=== PATIENT | male | born 1975 | race Two or more races ===

== ENCOUNTER 2024-07-30 14:12 | Emergency (ER) | payer MEDICAID, OTHER ==
[~2024-07-30] VITALS: Ht 180.3 cm; Wt 93.2 kg
[2024-07-30 14:53] LABS: Basophils # (auto) 0.1 10 ^3/uL (0-0.2); Eosinophils # (auto) 0.5 10 ^3/uL (0-0.8); Eosinophils % (auto) 6.6 % (0.0-7.0); Hematocrit 43.5 % (41.0-53.0); Lymphocytes # (auto) 2.3 10 ^3/uL (0.4-5.4); Lymphocytes % (auto) 32.7 % (10.0-50.0); Mean Corpuscular Hemoglobin 32.2 pg (28.0-32.0); Mean Corpuscular Hgb Conc. 34.5 g/dL (32.0-36.0); Mean Corpuscular Volume 93.2 fL (80.0-100.0); Monocytes # (auto) 0.7 10 ^3/uL (0-1.3); Monocytes % (auto) 10.5 % (0.0-12.0); Neutrophils # (auto) 3.5 10 ^3/uL (1.6-8.6); Neutrophils % (auto) 49.2 % (37.0-80.0); Nucleated Red Blood Cells % 0.1 %; Platelet Count (auto) 231 10^3/uL (140-450); Red Blood Cells 4.67 10^6/uL (4.5-5.90); Red Cell Distribution Width 13.8 % (11.8-14.3); White Blood Cell 7.1 10^3/uL (4.4-10.8)
[2024-07-30 15:03] LABS: Alanine Aminotransferase 31 U/L (7-40); Alkaline Phosphatase 88 U/L (46-116); Calcium 9.7 mg/dL (8.7-10.4); Carbon Dioxide 25 mmol/L (20-31); Chloride 107 mmol/L (98-107); Glucose 103 mg/dL (74-106); Magnesium 2.1 mg/dL (1.6-2.6); Potassium 4.4 mmol/L (3.5-5.1)
[2024-07-30 15:04] LABS: Albumin 4.7 g/dL (3.2-4.8); Anion Gap 6 (5-15); Aspartate Aminotransferase 18 U/L (13-40); BUN/Creatinine Ratio 12.8 (10.0-20.0); Bilirubin, Total 0.4 mg/dL (0.2-1.0); Blood Urea Nitrogen 18 mg/dL (9-23); Sodium 138 mmol/L (136-145); Total Protein 7.4 g/dL (5.7-8.2)
[2024-07-30 15:10] LABS: INR 0.97 (0.9-1.15); Partial Thromboplastin Time 27.9 SEC (24.5-34.5); Prothrombin Time 10.3 sec (9.3-11.8)
[2024-07-30 15:13] LABS: Urine Bacteria None Seen /hpf (None Seen)
[2024-07-30 15:21] LABS: Urine Blood TRACE /uL (Negative); Urine Clarity Clear (Clear); Urine Color Light-Yellow (Yellow); Urine Protein, UAD 1+ (Negative); Urine Specific Gravity 1.016 (1.001-1.035); Urine Urobilinogen Normal (Negative); Urine WBC <1 /hpf (0 - 3)
[2024-07-30] MEDS ORDERED: OMEP20TA PO (17:37)
[2024-07-30 18:05] VITALS: BP 145/102; PULSE 63; RESP 20; TEMP 98; O2SAT 98
== END 2024-07-30 18:07 | disposition home or self-care (01) ==
LOC: ER 14:12
DX: R07.89 Other chest pain (principal); I10 Essential (primary) hypertension
CPT/HCPCS: 36415; 71046; 80053; 81001; 83735; 84484; 85025; 85610; 85730; 93005

== ENCOUNTER 2024-10-02 20:33 | Emergency (ER) | payer MEDICAID ==
[~2024-10-02] VITALS: Ht 180.3 cm; Wt 95.0 kg
[~2024-10-02 20:33] MED LIST: OMEP20TA PO
[2024-10-02 20:49] VITALS: BP 158/101; RESP 16; O2SAT 99
[2024-10-02 20:57] VITALS: PULSE 66
--- NOTE | 2024-10-02 20:57 | ED.PDOC ---
History of Present Illness HPI Comments 49-year-old male presents with a chief complaint of chest pain x 40 minutes. Patient states that his pain is localized to his left chest, radiating to his left shoulder, describes as sharp, and rates his current pain 0/10. Patient mentions that as soon as the chest pain began he took 1 NTG at home and that r elieved his pain. Patient reports that the pain began while he was at rest. Patient takes Carvedilol, Hydralazine, and Clonidine. Patient was a little hypertensive at 158/101 in triage. Chief Complaint: Chest Pain Time Seen by MD: 20:42 Primary Care Provider: YONG Linder Notes: Medications, Allergies Allergies: Coded Allergies: NO KNOWN ALLERGIES (Unverified , 07/30/24) Home Meds Active Scripts Omeprazole (Gnp Omeprazole) 20 Mg Tab, 1 TAB PO BID for 10 Days, #20 TAB 1 Refill Prov:ARAM DELUCA MD 07/30/24 Information Source: Patient Mode of Arrival: Ambulatory Severity: Moderate Timing: Minutes Duration: Since onset Prehospital treatment: NTG Past Medical History PAST MEDICAL HISTORY: Denies Surgical History: Denies all surgeries Family History Family History: Reviewed,noncontributory to illness Social History Smoker: Non-Smoker Alcohol: Denies ETOH Use Drugs: Denies Drug Use Lives In: Home Constitutional: denies: chills, diaphoresis, fatigue, fever, malaise, sweats, weakness, others EENTM: denies: blurred vision, double vision, ear bleeding, ear discharge, ear drainage, ear pain, ear ringing, eye pain, eye redness, hearing loss, mouth pain, mouth swelling, nasal discharge, nose bleeding, nose congestion, nose pain, photophobia, tearing, throat pain, throat swelling, voice changes, others Respiratory: denies: cough, hemoptysis, orthopnea, SOB at rest, shortness of breath, SOB with excertion, stridor, wheezing, others Cardiovascular: reports: chest pain; denies: dizzy spells, diaphoresis, Dyspnea on exertion, edema, irregular heart beat, left arm pain, lightheadedness, palpitations, PND, syncope, others Gastrointestinal: denies: abdomen distended, abdominal pain, blood streaked bowels, constipated, diarrhea, dysphagia, difficulty swallowing, hematemesis, melena, nausea, poor appetite, poor fluid intake, rectal bleeding, rectal pain, vomiting, others Genitourinary: denies: burning, dysuria, flank pain, frequency, hematuria, incontinence, penile discharge, penile sore, pain, testicle pain, testicle swelling, urgency, others Neurological: denies: dizziness, fainting, headache, left sided numbness, left sided weakness, numbness, paresthesia, pre-existing deficit, right sided numbness, right sided weakness, seizure, speech problems, tingling, tremors, weakness, others Musculoskeletal: denies: back pain, gout, joint pain, joint swelling, muscle pain, muscle stiffness, neck pain, others Integumetry: denies: bruises, change in color, change in hair/nails, dryness, laceration, lesions, lumps, rash, wounds, others Allergic/Immunocompromised: denies: Difficulty Healing, Frequent Infections, Hives, Itching, others Hematologic/Lymphatic: denies: anemia, blood clots, easy bleeding, easy bruising, swollen glands, others Endocrine: denies: excessive hunger, excessive sweating, excessive thirst, excessive urination, flushing, intolerance to cold, intolerance to heat, unexplained weight gain, unexplained weight loss, others Psychiatric: denies: anxiety, bipolar disorder, depression, hopeless, panic disorder, schizophrenia, sleepless, suicidal, others All Other Systems: Reviewed and Negative Physical Exam General Appearance: No Apparent Distress, Normal HEENT: Normal ENT Inspection, Pharynx Normal, TMs Normal Neck: Full Range of Motion, Non-Tender, Normal, Normal Inspection Respiratory: Chest Non-Tender, Lungs Clear, No Accessory Muscle Use, No Respiratory Distress, Normal Breath Sounds Cardiovascular: No Edema, No JVD, No Murmur, No Gallop, Normal Peripheral Pulses, Regular Rate/Rhythm Breast Exam: Deferred Gastrointestinal: No Organomegaly, Non Tender, No Pulsatile Mass, Normal Bowel Sounds, Soft Genitalia: Deferred Pelvic: Deferred Rectal: Deferred Extremities: No calf tenderness, Normal capillary refill, Normal inspection, Normal range of motion, Non-tender, No pedal edema Musculoskeletal : Apperance: Normal Neurologic: Alert, certified court/medical interpreter II-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 Was a procedure done?: No EKG EKG : Pulse Rate (adult): 66 [place]: Normal Cardiac Rhythm: NSR Block: None Hypertrophy: None ST: Normal Differential Dx Considerations may include: Atypical chest pain angina ID acute coronary artery syndrome X-Ray, Labs, Meds, VS Vital Signs Date Time Temp Pulse Resp B/P (MAP) Pulse Ox O2 Delivery O2 Flow Rate FiO2 10/02/24 20:57 66 10/02/24 20:49 98.0 68 16 158/101 (120) 99 10/02/24 20:42 62 10/02/24 20:39 66 Lab Test 10/02/24 21:45 10/02/24 20:40 Range/Units Troponin I High Sensitivity 4 4 </=54 ng/L White Blood Count 7.0 4.4-10.8 10^3/uL Red Blood Count 4.71 4.5-5.90 10^6/uL Hemoglobin 14.8 13.5-17.5 g/dL Hematocrit 43.7 41.0-53.0 % Mean Corpuscular Volume 92.8 80.0-100.0 fL Mean Corpuscular Hemoglobin 31.5 28.0-32.0 pg Mean Corpuscular Hemoglobin Concent 34.0 32.0-36.0 g/dL Red Cell Distribution Width 14.0 11.8-14.3 % Platelet Count 211 140-450 10^3/uL Mean Platelet Volume 9.3 6.9-10.8 fL Neutrophils (%) (Auto) 52.0 37.0-80.0 % Lymphocytes (%) (Auto) 30.9 10.0-50.0 % Monocytes (%) (Auto) 8.9 0.0-12.0 % Eosinophils (%) (Auto) 7.5 H 0.0-7.0 % Basophils (%) (Auto) 0.7 0.0-2.0 % Neutrophils # (Auto) 3.7 1.6-8.6 10 ^3/uL Lymphocytes # (Auto) 2.2 0.4-5.4 10 ^3/uL Monocytes # (Auto) 0.6 0-1.3 10 ^3/uL Eosinophils # (Auto) 0.5 0-0.8 10 ^3/uL Basophils # (Auto) 0 0-0.2 10 ^3/uL Nucleated Red Blood Cells 0.1 % Sodium Level 137 136-145 mmol/L Potassium Level 4.0 3.5-5.1 mmol/L Chloride Level 103 98-107 mmol/L Carbon Dioxide Level 26 20-31 mmol/L Anion Gap 8 5-15 Blood Urea Nitrogen 20 9-23 mg/dL Creatinine 1.45 H 0.700-1.30 mg/dL Glomerular Filtration Rate Calc 58 >90 mL/min BUN/Creatinine Ratio 13.8 10.0-20.0 Serum Glucose 152 H 74-106 mg/dL Calcium Level 10.0 8.7-10.4 mg/dL Total Bilirubin 0.4 0.2-1.0 mg/dL Aspartate Amino Transferase (AST) 34 13-40 U/L Alanine Aminotransferase (ALT) 40 7-40 U/L Alkaline Phosphatase 100 46-116 U/L Total Protein 7.1 5.7-8.2 g/dL Albumin 4.4 3.2-4.8 g/dL [place] [id number] Ph: [phone] DIAGNOSTIC IMAGING Diagnostic Imaging Report : [id number] Signed PATIENT: HECTOR GAVIN JRACCT: [id number] UNIT: [id number] : 1975 LOC: ER ROOM / BED: / AGE / SEX: 49 / M ADM STATUS: REG ER SERVICE 34 ORDERING PHYSICIAN: MARQUES WARD MD PROCEDURE(s): CXRP - CHEST PORTABLE REASON: CHEST PAIN ORDER NUMBER(s): [id number], ACCESSION NUMBER(s): [id number] CHEST RADIOGRAPH Indication: CHEST PAIN Technique: Single frontal view of the chest was obtained Comparison: None FINDINGS: Lines and Tubes: None Lungs: Clear Pleura: No effusion. No pneumothorax. Cardiomediastinal contours: Unremarkable Bones: Unremarkable IMPRESSION: 1. Clear lungs. ATED BY: ISAEL CASTILLO DO DICTATED DATE/TIME: 10/02/242099 SIGNED BY: ISAEL CASTILLO DO SIGNED DATE/TIME: 10/02/242099 CC: Chest x-ray reviewed by myself and interpreted as men normal without any pulmonary cardio disease First troponin is four. Second troponin is four. EKG shows no signs of ischemia. CMP is normal. CBC is normal. The patient should be admitted to the hospitalist secondary to high cardiac risk factors. Time of 1ST Reevaluation: 21:12 Reevaluation 1ST: Unchanged Patient Education/Counseling: Diagnosis, Treatment, Prognosis Family Education/Counseling: No Family Present Departure 1 Departure Time of Disposition: 03:54 Impression: Primary Impression: Uncontrolled hypertension Additional Impression: Acute coronary syndrome Disposition: ADMITTED INPATIENT [facility]mit to: [facility] Condition: Guarded Critical Care Note Critical Care Time?: Yes (35 min-critical care time only) Stability Stability form required: No Heart Score Heart Score: Heart Score Response (Comments) Value History Highly Suspicious 2 EKG Normal 0 Age 45-64 1 Risk Factors >3 or Hx ASHD 2 Troponin Normal limit 0 Total 5 I personally scribed for MARQUES WARD MD ([email or web address]) on 10/02/24 at 20:57. Electronically submitted by Laith Allan [email or web address]). MARQUES WARD MD Oct 02, 2024 20:57
[2024-10-02 20:58] LABS: Basophils # (auto) 0 10 ^3/uL (0-0.2); Basophils % (auto) 0.7 % (0.0-2.0); Eosinophils # (auto) 0.5 10 ^3/uL (0-0.8); Eosinophils % (auto) 7.5 % (0.0-7.0); Hematocrit 43.7 % (41.0-53.0); Hemoglobin 14.8 g/dL (13.5-17.5); Lymphocytes # (auto) 2.2 10 ^3/uL (0.4-5.4); Lymphocytes % (auto) 30.9 % (10.0-50.0); Mean Corpuscular Hemoglobin 31.5 pg (28.0-32.0); Mean Corpuscular Volume 92.8 fL (80.0-100.0); Monocytes # (auto) 0.6 10 ^3/uL (0-1.3); Monocytes % (auto) 8.9 % (0.0-12.0); Neutrophils # (auto) 3.7 10 ^3/uL (1.6-8.6); Nucleated Red Blood Cells % 0.1 %; Platelet Count (auto) 211 10^3/uL (140-450); Red Blood Cells 4.71 10^6/uL (4.5-5.90)
--- NOTE | 2024-10-02 21:02 | DVH ---
CHEST RADIOGRAPH Indication: CHEST PAIN Technique: Single frontal view of the chest was obtained Comparison: None FINDINGS: Lines and Tubes: None Lungs: Clear Pleura: No effusion. No pneumothorax. Cardiomediastinal contours: Unremarkable Bones: Unremarkable IMPRESSION: 1. Clear lungs.
[2024-10-02 21:20] LABS: Albumin 4.4 g/dL (3.2-4.8); Alkaline Phosphatase 100 U/L (46-116); Anion Gap 8 (5-15); Aspartate Aminotransferase 34 U/L (13-40); BUN/Creatinine Ratio 13.8 (10.0-20.0); Blood Urea Nitrogen 20 mg/dL (9-23); Carbon Dioxide 26 mmol/L (20-31); Chloride 103 mmol/L (98-107); Sodium 137 mmol/L (136-145)
[2024-10-02 21:21] LABS: Bilirubin, Total 0.4 mg/dL (0.2-1.0); Total Protein 7.1 g/dL (5.7-8.2)
[2024-10-02 21:25] LABS: Alanine Aminotransferase 40 U/L (7-40); Glucose 152 mg/dL (74-106)
--- NOTE | 2024-10-03 02:06 | ECG ---
[facility] Test Date: 2024-10-02 Test Time: 21:42:16 Pat Name: HECTOR GAVIN Department: ER Room: Gender: Unix Administrator: : 1975 Requested By: MARQUES WARD Order Number: [id number] Reading MD: Reginald Tejada Measurements Intervals [place] Rate: 62 P: 47 [place]: 182 QRS: 17 QRSD: 109 T: 42 QT: 414 QTc: 421 Interpretive Statements Sinus rhythm Electronically Signed On 10-05-2024 10:24:45 PST by Reginald Tejada Please click the below link to view image of tracing.
--- NOTE | 2024-10-04 07:51 | ECG ---
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
== END 2024-10-03 00:44 | disposition left against medical advice (07) ==
LOC: ER 20:33
DX: I10 Essential (primary) hypertension (principal); I24.9 Acute ischemic heart disease, unspecified
CPT/HCPCS: 36415; 71045; 80053; 84484; 85025; 93005

== ENCOUNTER 2024-10-08 20:59 | Emergency (ER) | payer MEDICAID ==
[~2024-10-08] VITALS: Ht 180.3 cm; Wt 96.4 kg
[2024-10-08 21:22] LABS: Basophils # (auto) 0.1 10 ^3/uL (0-0.2); Eosinophils # (auto) 0.6 10 ^3/uL (0-0.8); Eosinophils % (auto) 7.8 % (0.0-7.0); Hematocrit 45.6 % (41.0-53.0); Hemoglobin 15.6 g/dL (13.5-17.5); Lymphocytes # (auto) 2.5 10 ^3/uL (0.4-5.4); Lymphocytes % (auto) 31.2 % (10.0-50.0); Mean Corpuscular Hemoglobin 31.5 pg (28.0-32.0); Mean Corpuscular Hgb Conc. 34.2 g/dL (32.0-36.0); Mean Corpuscular Volume 92.1 fL (80.0-100.0); Monocytes # (auto) 0.8 10 ^3/uL (0-1.3); Monocytes % (auto) 10.4 % (0.0-12.0); Neutrophils # (auto) 3.9 10 ^3/uL (1.6-8.6); Neutrophils % (auto) 49.6 % (37.0-80.0); Platelet Count (auto) 248 10^3/uL (140-450); Red Blood Cells 4.94 10^6/uL (4.5-5.90); Red Cell Distribution Width 13.8 % (11.8-14.3); White Blood Cell 7.9 10^3/uL (4.4-10.8)
[2024-10-08 21:34] LABS: Chloride 105 mmol/L (98-107); Potassium 3.6 mmol/L (3.5-5.1); Sodium 140 mmol/L (136-145)
[2024-10-08 21:35] LABS: Anion Gap 8 (5-15); Carbon Dioxide 27 mmol/L (20-31)
[2024-10-08 21:40] LABS: BUN/Creatinine Ratio 12.4 (10.0-20.0); Blood Urea Nitrogen 19 mg/dL (9-23); Glucose 83 mg/dL (74-106)
--- NOTE | 2024-10-08 21:52 | DVH ---
EXAMINATION: AP portable chest radiograph CLINICAL HISTORY: chest pain COMPARISON: XY CHEST PORTABLE on DOS: 10/02/24 TECHNIQUE: Upright chest x-ray FINDINGS: Negative AP chest. No dominant consolidations. The costophrenic angles are clear. No sizable pleural effusions or pneumo thorax identified. The cardiomediastinal silhouette appears within normal limits given technique. IMPRESSION: 1. Negative AP chest.
--- NOTE | 2024-10-09 00:49 | ED.PDOC ---
History of Present Illness HPI Comments 49-year-old male with a history of ckd presents with now resolved 6/10 left sided chest pain that did not radiate and was non exertional in nature. Patient reports he took his regular medications including a nitro and his pain resolved. He denies fevers, chills, nausea, vomiting, diarrhea, dysuria, or polyuria. Chief Complaint: Chest Pain Time Seen by MD: 21:01 Primary Care Provider: YONG Allergies: Coded Allergies: NO KNOWN ALLERGIES (Unverified , 07/30/24) Home Meds Active Scripts Omeprazole (Gnp Omeprazole) 20 Mg Tab, 1 TAB PO BID for 10 Days, #20 TAB 1 Refill Prov:ARAM DELUCA MD 07/30/24 Mode of Arrival: Ambulatory Past Medical History PAST MEDICAL HISTORY: Denies Surgical History: Denies all surgeries Family History Family History: Reviewed,noncontributory to illness Social History Smoker: Non-Smoker Alcohol: Denies ETOH Use Drugs: Denies Drug Use Lives In: Home Physical Exam General Appearance: No Apparent Distress, Normal HEENT: Normal ENT Inspection, Pharynx Normal, TMs Normal Neck: Full Range of Motion, Non-Tender, Normal, Normal Inspection Respiratory: Chest Non-Tender, Lungs Clear, No Accessory Muscle Use, No Respiratory Distress, Normal Breath Sounds Cardiovascular: No Edema, No JVD, No Murmur, No Gallop, Normal Peripheral Pu lses, Regular Rate/Rhythm Breast Exam: Deferred Gastrointestinal: No Organomegaly, Non Tender, No Pulsatile Mass, Normal Bowel Sounds, Soft Genitalia: Deferred Pelvic: Deferred Rectal: Deferred Extremities: No calf tenderness, Normal capillary refill, Normal inspection, Normal range of motion, Non-tender, No pedal edema Musculoskeletal : Apperance: Normal Neurologic: Alert, environmental health manager II-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 Was a procedure done?: No Differential Dx Considerations may include: acs, cva, msk strain, anxiety X-Ray, Labs, Meds, VS Vital Signs Date Time Temp Pulse Resp B/P (MAP) Pulse Ox O2 Delivery O2 Flow Rate FiO2 10/08/24 21:57 77 10/08/24 21:05 98.2 85 17 144/96 (112) 98 10/08/24 21:04 82 Lab Test 10/08/24 22:00 10/08/24 21:11 Range/Units Troponin I High Sensitivity 5 5 </=54 ng/L White Blood Count 7.9 4.4-10.8 10^3/uL Red Blood Count 4.94 4.5-5.90 10^6/uL Hemoglobin 15.6 13.5-17.5 g/dL Hematocrit 45.6 41.0-53.0 % Mean Corpuscular Volume 92.1 80.0-100.0 fL Mean Corpuscular Hemoglobin 31.5 28.0-32.0 pg Mean Corpuscular Hemoglobin Concent 34.2 32.0-36.0 g/dL Red Cell Distribution Width 13.8 11.8-14.3 % Platelet Count 248 140-450 10^3/uL Mean Platelet Volume 9.1 6.9-10.8 fL Neutrophils (%) (Auto) 49.6 37.0-80.0 % Lymphocytes (%) (Auto) 31.2 10.0-50.0 % Monocytes (%) (Auto) 10.4 0.0-12.0 % Eosinophils (%) (Auto) 7.8 H 0.0-7.0 % Basophils (%) (Auto) 1.0 0.0-2.0 % Neutrophils # (Auto) 3.9 1.6-8.6 10 ^3/uL Lymphocytes # (Auto) 2.5 0.4-5.4 10 ^3/uL Monocytes # (Auto) 0.8 0-1.3 10 ^3/uL Eosinophils # (Auto) 0.6 0-0.8 10 ^3/uL Basophils # (Auto) 0.1 0-0.2 10 ^3/uL Nucleated Red Blood Cells 0.0 % Sodium Level 140 136-145 mmol/L Potassium Level 3.6 3.5-5.1 mmol/L Chloride Level 105 98-107 mmol/L Carbon Dioxide Level 27 20-31 mmol/L Anion Gap 8 5-15 Blood Urea Nitrogen 19 9-23 mg/dL Creatinine 1.53 H 0.700-1.30 mg/dL Glomerular Filtration Rate Calc 55 >90 mL/min BUN/Creatinine Ratio 12.4 10.0-20.0 Serum Glucose 83 74-106 mg/dL Calcium Level 10.0 8.7-10.4 mg/dL Time of 1ST Reevaluation: 00:48 Reevaluation 1ST: Resolved Patient Education/Counseling: Diagnosis, Treatment Family Education/Counseling: No Family Present Departure 1 Departure Time of Disposition: 00:48 (Patient presented with chest pain that was concerning for possible STEMI, ACS, PE, Pneumonia, Muscle Strain, COPD, Dissection. Data: 1. I ordered and reviewed the result of at least 3 labs including a CBC, BMP, and Troponin. 2. I independently interpreted the following tests: EKG which shows normal sinus rhythm and Chest X-ray which shows a benign chest.Risk:This patient presented with a high risk of morbidity due to further diagnostic testing or treatment and may suffer from an acute cardiac or respiratory disorder. After review of all the data patient is unlikely to have a pe , dissection, and is low risk for acs. Patient is stable at this time.Workup so far is benign and patient will be discharged with outpatient followup. ) Impression: Primary Impression: Acute chest pain Disposition: HOME / SELF CARE / HOMELESS Condition: Stable Additional Instructions: You presented today with chest pain. Your workup today was benign including labs, troponin, EKG, chest x-ray. Your pain may be from musculoskeletal strain, acid reflux, anxiety, or many other factors. It is important to follow up with your regular doctor within 1 week. If your symptoms worsen or you have any other concerns please return to the emergency room. Discharged With: Self Critical Care Note Critical Care Time?: No Stability Stability form required: No Heart Score Heart Score: Heart Score Response (Comments) Value History Slightly Suspicious 0 EKG Normal 0 Age 45-64 1 Risk Factors 1 or 2 risk factors 1 Troponin Normal limit 0 Total 2 WARREN ROBINS MD Oct 09, 2024 00:49
[2024-10-09 02:22] VITALS: BP 134/98; PULSE 66; RESP 18; O2SAT 98
--- NOTE | 2024-10-09 06:25 | ECG ---
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
--- NOTE | 2024-10-09 10:52 | ECG ---
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
== END 2024-10-09 02:28 | disposition home or self-care (01) ==
LOC: ER 20:59
DX: R07.89 Other chest pain (principal); N18.9 Chronic kidney disease, unspecified; Z79.899 Other long term (current) drug therapy
CPT/HCPCS: 36415; 71045; 80048; 84484; 85025; 93005

== ENCOUNTER 2025-05-22 17:01 | Inpatient (IN) | payer MEDICAID ==
[~2025-05-22] VITALS: Ht 180.3 cm; Wt 88.6 kg
--- NOTE | 2025-05-22 17:14 | ED.PDOC ---
HPI Comments This is a 49 year-old male, with a PMHX of HTN and leaky heart valve, who presents to the ED via EMS with a chief complaint of chest pain with associated palpitations, nausea, and SOB as of minutes ago. 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 Patient states the customer denied him the ability to leave the situation, so symptoms quickly worsened. Patient reports feeling stressed, with 9/10 chest pain at the time. Upon evaluation, patient states chest pain is a 6/10, non-radiating, with the associated feeling of "pressure". Patient reports a history of this happening before. Patient has no other complaints at this time and otherwise denies further associated symptoms of cough, dizziness, blurred vision, or V/D. Chief Complaint: Chest Pain Time Seen by MD: 16:55 Primary Care Provider: YONG Linder Notes: Nurses Notes, Medications, Allergies Allergies: Coded Allergies: NO KNOWN ALLERGIES (Unverified , 07/30/24) Home Meds Active Scripts Omeprazole (Gnp Omeprazole) 20 Mg Tab, 1 TAB PO BID for 10 Days, #20 TAB 1 Refill Prov:ARAM DELUCA MD 07/30/24 Information Source: Patient Mode of Arrival: EMS Severity: Moderate Timing: Minutes Duration: Since onset Prehospital treatment: 12 Lead EKG Location: Substernal Radiation: No Radiation Quality: Pressure Associated Signs and Symptoms: SOB, Palpitations, Other (chest pain and nausea ) Past Medical History PAST MEDICAL HISTORY: CKF, High Lipids, HTN Surgical History (Other): R Arm Surgery Family History Family History: Family hx of DM, Family hx of heart tatianna, Family hx of HTN Social History Smoker: Non-Smoker Alcohol: Occasionally Drugs: Denies Drug Use Lives In: Home Constitutional: denies: chills, diaphoresis, fatigue, fever, malaise, sweats, weakness, others EENTM: denies: blurred vision, double vision, ear bleeding, ear discharge, ear drainage, ear pain, ear ringing, eye pain, eye redness, hearing loss, mouth pain, mouth swelling, nasal discharge, nose bleeding, nose congestion, nose pain, photophobia, tearing, throat pain, throat swelling, voice changes, others Respiratory: reports: SOB at rest, shortness of breath, SOB with excertion; denies: cough, hemoptysis, orthopnea, stridor, wheezing, others Cardiovascular: reports: chest pain, palpitations; denies: dizzy spells, diaphoresis, Dyspnea on exertion, edema, irregular heart beat, left arm pain, li ghtheadedness, PND, syncope, others Gastrointestinal: reports: nausea; denies: abdomen distended, abdominal pain, blood streaked bowels, constipated, diarrhea, dysphagia, difficulty swallowing, hematemesis, melena, poor appetite, poor fluid intake, rectal bleeding, rectal pain, vomiting, others Genitourinary: denies: burning, dysuria, flank pain, frequency, hematuria, incontinence, penile discharge, penile sore, pain, testicle pain, testicle s welling, urgency, others Neurological: denies: dizziness, fainting, headache, left sided numbness, left sided weakness, numbness, paresthesia, pre-existing deficit, right sided numbness, right sided weakness, seizure, speech problems, tingling, tremors, weakness, others Musculoskeletal: denies: back pain, gout, joint pain, joint swelling, muscle pain, muscle stiffness, neck pain, others Integumetry: denies: bruises, change in color, change in hair/nails, dryness, laceration, lesions, lumps, rash, wounds, others Allergic/Immunocompromised: denies: Difficulty Healing, Frequent Infections, Hives, Itching, others Hematologic/Lymphatic: denies: anemia, blood clots, easy bleeding, easy bruising, swollen glands, others Endocrine: denies: excessive hunger, excessive sweating, excessive thirst, excessive urination, flushing, intolerance to cold, intolerance to heat, unexplained weight gain, unexplained weight loss, others Psychiatric: denies: anxiety, bipolar disorder, depression, hopeless, panic disorder, schizophrenia, sleepless, suicidal, others All Other Systems: Reviewed and Negative Physical Exam General Appearance: Moderate Distress HEENT: Normal ENT Inspection, Pharynx Normal, TMs Normal Neck: Full Range of Motion, Non-Tender, Normal, Normal Inspection Respiratory: Chest Non-Tender, Lungs Clear, No Accessory Muscle Use, No Respiratory Distress, Normal Breath Sounds Cardiovascular: No Edema, No JVD, No Murmur, No Gallop, Normal Peripheral Pulses, Regular Rate/Rhythm Breast Exam: Deferred Gastrointestinal: No Organomegaly, Non Tender, No Pulsatile Mass, Normal Bowel Sounds, Soft Genitalia: Deferred Pelvic: Deferred Rectal: Deferred Extremities: No calf tenderness, Normal capillary refill, Normal inspection, Normal range of motion, Non-tender, No pedal edema Musculoskeletal : Apperance: Normal Neurologic: Alert, 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 Was a procedure done?: No CP Differential Dx Differential Diagnosis: Angina, Anxiety / Panic Attack Differential Diagnosis: HTN Essential X-Ray, Labs, Meds, VS Vital Signs Date Time Temp Pulse Resp B/P (MAP) Pulse Ox O2 Delivery O2 Flow Rate FiO2 05/22/25 18:09 72 18 124/83 (97) 97 05/22/25 18:09 72 18 97 Room Air 05/22/25 17:14 78 05/22/25 17:05 98.1 78 18 110/68 99 98.1 05/22/25 17:01 78 Lab Test 05/22/25 18:31 05/22/25 17:15 Range/Units Troponin I High Sensitivity Pending 10 </=54 ng/L White Blood Count 6.4 4.4-10.8 10^3/uL Red Blood Count 4.86 4.5-5.90 10^6/uL Hemoglobin 15.2 13.5-17.5 g/dL Hematocrit 44.2 41.0-53.0 % Mean Corpuscular Volume 91.0 80.0-100.0 fL Mean Corpuscular Hemoglobin 31.2 28.0-32.0 pg Mean Corpuscular Hemoglobin Concent 34.3 32.0-36.0 g/dL Red Cell Distribution Width 13.5 11.8-14.3 % Platelet Count 272 140-450 10^3/uL Mean Platelet Volume 9.2 6.9-10.8 fL Neutrophils (%) (Auto) 50.6 37.0-80.0 % Lymphocytes (%) (Auto) 30.5 10.0-50.0 % Monocytes (%) (Auto) 13.8 H 0.0-12.0 % Eosinophils (%) (Auto) 4.3 0.0-7.0 % Basophils (%) (Auto) 0.8 0.0-2.0 % Neutrophils # (Auto) 3.3 1.6-8.6 10 ^3/uL Lymphocytes # (Auto) 2.0 0.4-5.4 10 ^3/uL Monocytes # (Auto) 0.9 0-1.3 10 ^3/uL Eosinophils # (Auto) 0.3 0-0.8 10 ^3/uL Basophils # (Auto) 0.1 0-0.2 10 ^3/uL Nucleated Red Blood Cells 0.2 % Sodium Level 135 L 136-145 mmol/L Potassium Level 4.6 3.5-5.1 mmol/L Chloride Level 101 98-107 mmol/L Carbon Dioxide Level 23 20-31 mmol/L Anion Gap 11 5-15 Blood Urea Nitrogen 30 H 9-23 mg/dL Creatinine 2.58 H 0.700-1.30 mg/dL Glomerular Filtration Rate Calc 29 >90 mL/min BUN/Creatinine Ratio 11.6 10.0-20.0 Serum Glucose 82 74-106 mg/dL Calcium Level 9.7 8.7-10.4 mg/dL No acute cardiopulmonary disease. IV Hep-Lock was established The patient was given aspirin The patient's CBC and chemistry panel shows a BUN of 30 and a creatinine of 2.58 The troponin level is negative at this time The patient is still having persistent chest pain The patient is being admitted at this time Images Reviewed?: Images reviewed and evaluated by me Time of 1ST Reevaluation: 17:35 Reevaluation 1ST: Unchanged Patient Education/Counseling: Diagnosis, Treatment, Prognosis Family Education/Counseling: No Family Present SEPSIS Sepsis Screen Physician Orders Chest Portable (05/22/25 17:08) Heplock Iv (05/22/25 17:08) Malariologist (05/22/25 17:08) Blood Pressure (05/22/25 17:08) Pulse Oximetry (05/22/25 17:08) Urinalysis (05/22/25 17:08) Electrocardigram (05/22/25 17:08) Troponin-I Hs (05/22/25 18:08) Troponin-I Hs (05/22/25 20:08) Vital Signs Date Time Temp Pulse Resp B/P (MAP) Pulse Ox O2 Delivery O2 Flow Rate FiO2 05/22/25 18:09 72 18 124/83 (97) 97 05/22/25 18:09 72 18 97 Room Air 05/22/25 17:14 78 05/22/25 17:05 98.1 78 18 110/68 99 98.1 05/22/25 17:01 78 Laboratory Tests Test 05/22/25 17:15 White Blood Count 6.4 10^3/uL (4.4-10.8) Departure 1 Departure Time of Disposition: 19:03 Impression: Primary Impression: Acute coronary syndrome Disposition: 01 HOME / SELF CARE / HOMELESS Condition: Stable Discharged With: Self Critical Care Note Critical Care Time?: No Stability Stability form required: No Heart Score Heart Score: Heart Score Response (Comments) Value History Slightly Suspicious 0 EKG Normal 0 Age 45-64 1 Risk Factors 1 or 2 risk factors 1 Troponin Normal limit 0 Total 2 I personally scribed for DYLON MCKEON MD ([email or web address]) on 05/22/25 at 17:14. Electronically submitted by Dorina Reyes ([employer]). I personally scribed for DYLON MCKEON MD ([email or web address]) on 05/22/25 at 17:57. Electronically submitted by Dorina Reyes ([employer]). I personally scribed for DYLON MCKEON MD ([email or web address]) on 05/22/25 at 18:39. Electronically submitted by Dorina Reyes ([employer]). DYLON MCKEON MD May 22, 2025 17:14
[2025-05-22 17:29] LABS: Hematocrit 44.2 % (41.0-53.0); Hemoglobin 15.2 g/dL (13.5-17.5); Mean Corpuscular Hemoglobin 31.2 pg (28.0-32.0); Mean Corpuscular Volume 91.0 fL (80.0-100.0); Nucleated Red Blood Cells % 0.2 %
[2025-05-22 17:37] LABS: Chloride 101 mmol/L (98-107); Potassium 4.6 mmol/L (3.5-5.1)
[2025-05-22 17:38] LABS: Anion Gap 11 (5-15); Calcium 9.7 mg/dL (8.7-10.4); Carbon Dioxide 23 mmol/L (20-31)
[2025-05-22 17:43] LABS: BUN/Creatinine Ratio 11.6 (10.0-20.0); Glucose 82 mg/dL (74-106)
[2025-05-22 18:20] LABS: Blood Urea Nitrogen 30 mg/dL (9-23); Sodium 135 mmol/L (136-145)
--- NOTE | 2025-05-22 18:35 | DVH ---
CHEST RADIOGRAPH Indication: cp Technique: Single frontal view of the chest was obtained Comparison: XY CHEST PORTABLE on DOS: 10/08/24, XY CHEST PORTABLE on DOS: 10/02/24, XY CHEST TWO VIEW S ROUTINE on DOS: 07/30/24 FINDINGS: Lines and Tubes: None Lungs: No focal consolidation. Pleura: No effusion. No pneumothorax. Cardiomediastinal contours: Unremarkable Bones: No acute osseous abnormality. IMPRESSION: No acute cardiopulmonary disease.
[2025-05-22] MEDS ORDERED: ACETAMINOPHEN 325 MG TAB PO PRN (19:30)
[2025-05-22] MEDS ORDERED: ONDANSETRON HCL 4 MG/2 ML VIAL IV PRN (19:30)
[2025-05-22] MEDS ORDERED: NITROGLYCERIN 0.4 MG SL TAB SL PRN (19:30)
[2025-05-22] MEDS ORDERED: MORPHINE SULFATE INJ 2 MG/ml SYRG IV PRN (19:30)
--- NOTE | 2025-05-22 21:39 | DVHHP2 ---
History of Present Illness Reason for Visit: Chest pain History of Present Illness 49-year-old male presents for evaluation of chest pain. Patient reports developing left-sided pressure-like chest pain after having an argument with a co-worker. Currently he denies any complaints. 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 Past Medical History Hypertension, dyslipidemia, chronic kidney disease Past Surgical History Right arm surgery Family History Noncontributory Smoke: No ALCOHOL: none Drugs: None Lives: with Family Review of Systems Review of Systems Review of systems are currently negative otherwise addressed in HPI. Allergies: Coded Allergies: NO KNOWN ALLERGIES (Unverified , 07/30/24) Medications Current Medications Medications Dose Ordered Sig/Onofre Route Start Time Stop Time Status Last Admin Dose Admin Aspirin 81 mg DAILY PO 05/23/25 10:00 Sodium Bicarbonate 650 mg BID PO 05/22/25 22:00 Labetalol HCl 300 mg Q12HR PO 05/22/25 22:00 Atorvastatin Calcium 40 mg HS PO 05/22/25 22:00 Amlodipine Besylate 10 mg DAILY PO 05/23/25 10:00 Ondansetron HCl 4 mg Q4HP PRN IV 05/22/25 19:30 Acetaminophen 650 mg Q6HP PRN PO 05/22/25 19:30 Nitroglycerin 0.4 mg Q5MINP PRN SL 05/22/25 19:30 Morphine Sulfate 2 mg Q30M PRN IV 05/22/25 19:30 Exam Vital Signs Vital Signs Date Time Temp Pulse Resp B/P (MAP) Pulse Ox O2 Delivery O2 Flow Rate FiO2 05/22/25 18:09 72 18 124/83 (97) 97 05/22/25 18:09 Room Air 05/22/25 17:05 98.1 98.1 Exam Gen: 49-year-old male in no apparent distress. Skin: Warm, dry, normal color and texture, no rash. HEENT: Normocephalic atraumatic, mucous membranes moist and pink. Neck: Cervical and supraclavicular nodes normal without enlargement, trachea is midline, thyroid gland is normal without masses. Pulmonary: Clear to auscultation and percussion bilaterally. Cardiac: Regular rate and rhythm. No murmur Abdomen: Soft, nontender, nondistended, bowel sounds present all 4 quadrants, no guarding, no rigidity, no organomegaly. Extremities: No cyanosis, clubbing, no edema Neuro: Cranial nerves II through XII grossly intact, normal affect and speech, no focal motor deficits. Labs/Xrays ORDERING PHYSICIAN: DYLON MCKEON MD PROCEDURE(s): CXRP - CHEST PORTABLE REASON: cp ORDER NUMBER(s): [id number], ACCESSION NUMBER(s): [id number] CHEST RADIOGRAPH Indication: cp Technique: Single frontal view of the chest was obtained Comparison: XY CHEST PORTABLE on DOS: 10/08/24, XY CHEST PORTABLE on DOS: 10/02/24, XY CHEST TWO VIEWS ROUTINE on DOS: 07/30/24 FINDINGS: Lines and Tubes: None Lungs: No focal consolidation. Pleura: No effusion. No pneumothorax. Cardiomediastinal contours: Unremarkable Bones: No acute osseous abnormality. IMPRESSION: No acute cardiopulmonary disease. Labs Test 05/22/25 18:31 05/22/25 18:14 05/22/25 17:15 Range/Units Troponin I High Sensitivity 11 </=54 ng/L White Blood Count 6.4 4.4-10.8 10^3/uL Red Blood Count 4.86 4.5-5.90 10^6/uL Hemoglobin 15.2 13.5-17.5 g/dL Hematocrit 44.2 41.0-53.0 % Mean Corpuscular Volume 91.0 80.0-100.0 fL Mean Corpuscular Hemoglobin 31.2 28.0-32.0 pg Mean Corpuscular Hemoglobin Concent 34.3 32.0-36.0 g/dL Red Cell Distribution Width 13.5 11.8-14.3 % Platelet Count 272 140-450 10^3/uL Mean Platelet Volume 9.2 6.9-10.8 fL Neutrophils (%) (Auto) 50.6 37.0-80.0 % Lymphocytes (%) (Auto) 30.5 10.0-50.0 % Monocytes (%) (Auto) 13.8 H 0.0-12.0 % Eosinophils (%) (Auto) 4.3 0.0-7.0 % Basophils (%) (Auto) 0.8 0.0-2.0 % Neutrophils # (Auto) 3.3 1.6-8.6 10 ^3/uL Lymphocytes # (Auto) 2.0 0.4-5.4 10 ^3/uL Monocytes # (Auto) 0.9 0-1.3 10 ^3/uL Eosinophils # (Auto) 0.3 0-0.8 10 ^3/uL Basophils # (Auto) 0.1 0-0.2 10 ^3/uL Nucleated Red Blood Cells 0.2 % Sodium Level 135 L 136-145 mmol/L Potassium Level 4.6 3.5-5.1 mmol/L Chloride Level 101 98-107 mmol/L Carbon Dioxide Level 23 20-31 mmol/L Anion Gap 11 5-15 Blood Urea Nitrogen 30 H 9-23 mg/dL Creatinine 2.58 H 0.700-1.30 mg/dL Glomerular Filtration Rate Calc 29 >90 mL/min BUN/Creatinine Ratio 11.6 10.0-20.0 Serum Glucose 82 74-106 mg/dL Calcium Level 9.7 8.7-10.4 mg/dL SEPSIS Sepsis Screen Date sepsis recognized/suspect: May 22, 2025 Time Sepsis recognized/suspect: 1704 Recent Procedure: No On Antibiotic Therapy: No Respiratory Rate >20: No Heart Rate >90: No Temp<36 C (96.8 F) or >38.3 C: No SBP <90 or MAP <65 mmHG: No New Acute Mental Status Change: No Is the patient on CPAP, BIPAP,: No Physician Orders Chest Portable (05/22/25 17:08) Heplock Iv (05/22/25 17:08) Shopfitter (05/22/25 17:08) Blood Pressure (05/22/25 17:08) Pulse Oximetry (05/22/25 17:08) Urinalysis (05/22/25 17:08) Electrocardigram (05/22/25 17:08) Aspirin Tablet (05/23/25 10:00) Sodium Bicarb Tab (05/22/25 22:00) Labetalol Hcl Tablet (Normodyne Tablet) (05/22/25 22:00) Atorvastatin (Lipitor) (05/22/25 22:00) Amlodipine Tablet (Norvasc Tablet) (05/23/25 10:00) Basic Metabolic Panel (05/23/25 04:00) *Dr. Conchita Fierro -Da Diana (05/22/25 19:29) Admit (05/22/25 19:29) Renal Standard(2gna,3gk,Lopho) (05/23/25 Breakfast) Ondansetron Hcl (Zofran) (05/22/25 19:30) Echo 2d Mode Cardiac Dop (05/22/25 19:29) Condition: Fair (05/22/25 19:29) Acetaminophen Tablet (Tylenol Tablet) (05/22/25 19:30) Bedrest With Bathroom Privileg (05/22/25 19:29) Nitroglycerin Sublingual (Ntrostat Subli (05/22/25 19:30) Morphine Sulfate Injection (05/22/25 19:30) Stat Ekg For Chest Pain (05/22/25 19:29) Notify Md Of Changes From Base (05/22/25 19:29) Risk Assessment Analyst For 24 Hours (05/22/25 19:29) Emergency Dysrhythmia Protocol (05/22/25 19:29) Rhythm Strips Once Every Shift (05/22/25 19:29) Oxygen By Nasal Cannula (05/22/25 19:29) * Cardiology Consult (05/22/25 21:35) Vital Signs Date Time Temp Pulse Resp B/P (MAP) Pulse Ox O2 Delivery O2 Flow Rate FiO2 05/22/25 18:09 72 18 124/83 (97) 97 05/22/25 18:09 72 18 97 Room Air 05/22/25 17:14 78 05/22/25 17:05 98.1 78 18 110/68 99 98.1 05/22/25 17:01 78 Laboratory Tests Test 05/22/25 17:15 White Blood Count 6.4 10^3/uL (4.4-10.8) Assessment/Plan Assessment/Plan Assessment Chest pain rule out ACS Acute on chronic renal failure Hypertension Plan Admit the patient to telemetry to the hospitalist Cardiology consultation Nephrology consult Resume home medications Continue treatment per orders. Plan discussed with: Patient My Orders Orders - CAMRON BENAVIDEZ AGACNP Procedure Category Date Status Time Aspirin Tablet PHA 05/23/25 In Process 10:00 Sodium Bicarb Tab PHA 05/22/25 In Process 22:00 Labetalol Hcl Tablet PHA 05/22/25 In Process (Normodyne Tablet) 22:00 Atorvastatin (Lipitor) PHA 05/22/25 In Process 22:00 Amlodipine Tablet PHA 05/23/25 In Process (Norvasc Tablet) 10:00 Basic Metabolic Panel LAB 05/23/25 Verified 04:00 *Dr. Conchita Alfaro CONS 05/22/25 Transmitted Diana 19:29 Admit ADMIT 05/22/25 Transmitted 19:29 Renal DIET 05/23/25 Transmitted Standard(2gna,3gk,Lopho) Breakfast Ondansetron Hcl PHA 05/22/25 In Process (Zofran) 19:30 Echo 2d Mode Cardiac US 05/22/25 Logged DOP 19:29 Condition: Fair ILIANA 05/22/25 In Process 19:29 Acetaminophen Tablet PHA 05/22/25 In Process (Tylenol Tablet) 19:30 Bedrest With Bathroom ILIANA 05/22/25 In Process Privileg 19:29 Nitroglycerin [facility] 05/22/25 In Process Sublingual (Ntrostat 19:30 Morphine Sulfate PHA 05/22/25 In Process Injection 19:30 Stat Ekg For Chest [facility] 05/22/25 In Process Pain 19:29 Notify Md Of Changes [facility] 05/22/25 In Process From Base 19:29 Risk Assessment Analyst For [facility] 05/22/25 In Process 24 Hours 19:29 Emergency Dysrhythmia [facility] 05/22/25 In Process Protocol 19:29 Rhythm Strips Once [facility] 05/22/25 In Process Every Shift 19:29 Oxygen By Nasal RT 05/22/25 Transmitted Cannula 19:29 * Cardiology Consult CONS 05/22/25 Verified 21:35 Date of Service: May 22, 2025 Billing Provider: CAMRON BENAVIDEZ Common Visit Codes: [id number] INP/OBS CARE (HIGH) CAMRON BENAVIDEZ May 22, 2025 21:39
[2025-05-22 21:48] LABS: Urine Protein, UAD TRACE (Negative)
[2025-05-22] MEDS: ATORVASTATIN 20 MG TAB PO SCH (22:41)
[2025-05-22] MEDS: LABETALOL HCL 200 MG TAB PO SCH (22:42)
[2025-05-22] MEDS: SODIUM BICARBONATE 650 MG TAB PO SCH (22:42)
[2025-05-22 22:43] VITALS: PULSE 78; RESP 18; O2SAT 98
[2025-05-23 08:25] LABS: Chloride 103 mmol/L (98-107); Potassium 3.7 mmol/L (3.5-5.1); Sodium 136 mmol/L (136-145)
[2025-05-23 08:26] LABS: Anion Gap 11 (5-15); Calcium 9.3 mg/dL (8.7-10.4); Carbon Dioxide 22 mmol/L (20-31)
[2025-05-23 08:31] LABS: BUN/Creatinine Ratio 16.3 (10.0-20.0); Glucose 82 mg/dL (74-106)
[2025-05-23 08:33] LABS: Blood Urea Nitrogen 33 mg/dL (9-23)
--- NOTE | 2025-05-23 09:14 | DVHINCON2 ---
Date of service: May 23, 2025 History of Present Illness HPI Patient is a 49-year-old gentleman who presented to the hospital after an argument which resulted in some palpitation and chest discomfort. At the time of evaluation, patient denies any chest discomfort and palpitation. Cardiology is involved for cardiac aspects of care. Patient is known to our office from outside and before. Does have history of hypertension and CKD for which follows with cardiology (os) and also Nephrology. It is of note that the patient says that he had been fasting for the past 3 days. 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 Drugs: None Review of Systems Constitutional: No symptom reported Cardiovascular: Chest Pain, Palpitations All Other Systems 14 point review of system was performed. Relevant findings as per above and as per HPI. Otherwise negative. H&P Exam Vital Signs Vital Signs Date Time Temp Pulse Resp B/P (MAP) Pulse Ox O2 Delivery O2 Flow Rate FiO2 05/23/25 07:39 97.6 58 18 109/77 (88) 95 97.6 05/22/25 22:43 Room Air* 0 21 General Appeara: Well developed Head Exam: Normal inspection Neck Exam: Normal inspection Eye Exam: bilateral eye PERRL Nasal Exam: Normal inspection Mouth: Normal Inspection Pulmonary/Respiratory: Lungs clear Cardiovascular/Chest: Regular rate, Systolic murmur Abdominal Exam: Normal bowel sounds, Soft, No hepatospenomegaly Neuro/Mental St: Alert, Oriented Appearance: Appropriate appearance Eye contact/ Speech: Cooperative Labs/Xrays Labs Test 05/23/25 08:43 05/23/25 07:32 05/22/25 18:31 05/22/25 18:14 Range/Units Sodium Level 136 136-145 mmol/L Potassium Level 3.7 3.5-5.1 mmol/L Chloride Level 103 98-107 mmol/L Carbon Dioxide Level 22 20-31 mmol/L Anion Gap 11 5-15 Blood Urea Nitrogen 33 H 9-23 mg/dL Creatinine 2.03 H 0.700-1.30 mg/dL Glomerular Filtration Rate Calc 39 >90 mL/min BUN/Creatinine Ratio 16.3 10.0-20.0 Serum Glucose 82 74-106 mg/dL Calcium Level 9.3 8.7-10.4 mg/dL Magnesium Level 2.3 1.6-2.6 mg/dL Troponin I High Sensitivity 11 </=54 ng/L Urine Color Yellow Yellow Urine Clarity Clear Clear Urine pH 5.0 5.0-9.0 Urine Specific [place] 1.015 1.001-1.035 Urine Protein Trace H Negative Urine Ketones Trace Negative Urine Blood Negative Negative /uL Urine Nitrite Negative Negative Urine Bilirubin Negative Negative Urine Urobilinogen Normal Negative mg/dL Urine Leukocyte Esterase Negative Negative /uL Urine RBC <1 0 - 3 /hpf Urine Microscopic WBC 1 0-3 /HPF Urine Squamous Epithelial Cells None seen <5 /hpf Urine Bacteria None seen None Seen /hpf Urine Hyaline Casts Few 0 - 2 /lpf Urine Glucose Normal Normal mg/dL Test 05/22/25 17:15 Range/Units White Blood Count 6.4 4.4-10.8 10^3/uL Red Blood Count 4.86 4.5-5.90 10^6/uL Hemoglobin 15.2 13.5-17.5 g/dL Hematocrit 44.2 41.0-53.0 % Mean Corpuscular Volume 91.0 80.0-100.0 fL Mean Corpuscular Hemoglobin 31.2 28.0-32.0 pg Mean Corpuscular Hemoglobin Concent 34.3 32.0-36.0 g/dL Red Cell Distribution Width 13.5 11.8-14.3 % Platelet Count 272 140-450 10^3/uL Mean Platelet Volume 9.2 6.9-10.8 fL Neutrophils (%) (Auto) 50.6 37.0-80.0 % Lymphocytes (%) (Auto) 30.5 10.0-50.0 % Monocytes (%) (Auto) 13.8 H 0.0-12.0 % Eosinophils (%) (Auto) 4.3 0.0-7.0 % Basophils (%) (Auto) 0.8 0.0-2.0 % Neutrophils # (Auto) 3.3 1.6-8.6 10 ^3/uL Lymphocytes # (Auto) 2.0 0.4-5.4 10 ^3/uL Monocytes # (Auto) 0.9 0-1.3 10 ^3/uL Eosinophils # (Auto) 0.3 0-0.8 10 ^3/uL Basophils # (Auto) 0.1 0-0.2 10 ^3/uL Nucleated Red Blood Cells 0.2 % Assessment/Plan Plan Patient is a 49-year-old gentleman who presented to the hospital after an argument which resulted in some palpitation and chest discomfort. At the time of evaluation, patient denies any chest discomfort and palpitation. Cardiology is involved for cardiac aspects of care. Patient is known to our office from outside and before. Does have history of hypertension and CKD for which follows with cardiology (os) and also Nephrology. It is of note that the patient says that he had been fasting for the past 3 days. Not in acute distress. No JVD. Mucosa is pink and wet. No carotid bruit. No goiter. Lungs are clear to auscultation. Cardiac: Regular, no thrill/gallop. Systolic murmur 2/6 in the apex is heard. Abdomen is soft. There is no hepatomegaly. There is no peripheral edema. Dorsalis pedis is 2+ bilateral. 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 Echocardiogram of December 11, 2024 (performed in the office) revealed LVEF of 65-70%, borderline concentric left ventricular hypertrophy, mild mitral valve prolapse/MR/TR/PI and right ventricular systolic pressure of 31 mm Hg Creatinine: 2.58 - 2.03 GFR: 28 - 33 Potassium: 4.6 Troponin (high sensitive): 10-11 EKG reveals sinus rhythm with no specific ST-T changes Patient is a 49-year-old gentleman who presented with atypical chest discomfort which happened after some argument. EKG has been nonrevealing. Serial high sensitive troponin has been negative. Acute coronary syndrome is not con sidered. It is of note that the patient does have old history of CKD and his baseline GFR was around 60 in October 2024. Presently his GFR has decreased. He does mentioned that he had been fasting for few days before arrival. It is also of note that the patient does have hypertension for which he was on labetalol/amlodipine/clonidine as outpatient. Atypical chest pain Hypertension JONI on CKD Hyperlipidemia GERD Cardiac suggestion for management: Manage on telemetry Follow-up electrolytes and kidney function tests and correct abnormalities Follow-up vital signs and avoid hyper/hypotension Echocardiogram No indication for ischemic workup at this point Consider urinalysis Consider Nephrology evaluation for worsening kidney function Lifestyle and risk factor modification is advised Further evaluation and management depends on the above and clinical course Thank you for consultation A total of 75 minutes was spent reviewing the patient record, examining the patient, making a diagnostic and therapeutic plan, discussing this plan with medical personnel, following up on diagnostic studies and following the patient for clinical stability excluding any and all procedures. At least 50% of this time was spent in direct, [id number] contact. Thank you for allowing me to participate in this patient's care. Further recommendations will depend on patient's clinical course. Please do not hesitate to contact me if you have any questions or concerns. This medical document was created using electronic medical record system with [employer] computerized dictation system. Although this document has been carefully reviewed, there may still be some phonetic and typographical errors. These areas are purely typographical due to the imperfection of the software programs, and do not reflect any compromise in the patient's medical care Plan discussed with: Patient, Other (nurse) GABRIEL PRATT MD May 23, 2025 09:14
[2025-05-23 09:44] LABS: INR 0.97 (0.9-1.15); Prothrombin Time 10.3 sec (9.3-11.8)
[2025-05-23] MEDS ORDERED: HYDR-4924 PO (12:11)
[2025-05-23] MEDS ORDERED: TAMS-35 PO (12:11)
[2025-05-23 13:17] VITALS: RESP 16; O2SAT 97
[2025-05-23 13:37] VITALS: BP 122/70; PULSE 72; TEMP 36.9
[2025-05-23 14:07] LABS: Amphetamine Screen, Urine Neg (NEGATIVE)
[2025-05-23 14:08] LABS: Barbiturate Scree,Urine Neg (NEGATIVE); Benzodiazephine Screen, Urine Neg (NEGATIVE); Cannabinoid Screen, Urine Neg (NEGATIVE); Cocaine Screen, Urine Neg (NEGATIVE); Opiate Scree,Urine Neg (NEGATIVE); Phencyclidine Screen, Urine Neg (NEGATIVE)
--- NOTE | 2025-05-23 19:45 | DVHDSRES ---
Discharge Summary Date of Admission Resident Creating Document: JOAO LAWRENCE RESIDENT May 22, 2025 at 19:29 Date of Discharge: May 23, 2025 Admitting Diagnosis Noncardiac chest pain Labs/Diagnostic Data: Laboratory Results Test 05/23/25 08:43 05/23/25 07:32 05/22/25 18:31 05/22/25 18:14 Prothrombin Time 10.3 sec (9.3-11.8) Prothrombin Time INR 0.97 (0.9-1.15) Sodium Level 136 mmol/L (136-145) Potassium Level 3.7 mmol/L (3.5-5.1) Chloride Level 103 mmol/L (98-107) Carbon Dioxide Level 22 mmol/L (20-31) Anion Gap 11 (5-15) Blood Urea Nitrogen 33 mg/dL (9-23) Creatinine 2.03 mg/dL (0.700-1.30) Glomerular Filtration Rate Calc 39 mL/min (>90) BUN/Creatinine Ratio 16.3 (10.0-20.0) Serum Glucose 82 mg/dL (74-106) Calcium Level 9.3 mg/dL (8.7-10.4) Magnesium Level 2.3 mg/dL (1.6-2.6) Thyroid Stimulating Hormone (TSH) 0.95 uIU/mL (0.55-4.78) Troponin I High Sensitivity 11 ng/L (</=54) Urine Color Yellow (Yellow) Urine Clarity Clear (Clear) Urine pH 5.0 (5.0-9.0) Urine Specific [place] 1.015 (1.001-1.035) Urine Protein Trace (Negative) Urine Ketones Trace (Negative) Urine Blood Negative /uL (Negative) Urine Nitrite Negative (Negative) Urine Bilirubin Negative (Negative) Urine Urobilinogen Normal mg/dL (Negative) Urine Leukocyte Esterase Negative /uL (Negative) Urine RBC <1 /hpf (0 - 3) Urine Microscopic WBC 1 /HPF (0-3) Urine Squamous Epithelial Cells None seen /hpf (<5) Urine Bacteria None seen /hpf (None Seen) Urine Hyaline Casts Few /lpf (0 - 2) Urine Glucose Normal mg/dL (Normal) Urine Opiates Screen Neg (NEGATIVE) Urine Fentanyl Screen Neg (NEGATIVE) Urine Barbiturates Screen Neg (NEGATIVE) Urine Phencyclidine Screen Neg (NEGATIVE) Urine Amphetamines Screen Neg (NEGATIVE) Urine Benzodiazepines Screen Neg (NEGATIVE) Urine Cocaine Screen Neg (NEGATIVE) Urine Cannabinoids Screen Neg (NEGATIVE) Test 05/22/25 17:15 White Blood Count 6.4 10^3/uL (4.4-10.8) Red Blood Count 4.86 10^6/uL (4.5-5.90) Hemoglobin 15.2 g/dL (13.5-17.5) Hematocrit 44.2 % (41.0-53.0) Mean Corpuscular Volume 91.0 fL (80.0-100.0) Mean Corpuscular Hemoglobin 31.2 pg (28.0-32.0) Mean Corpuscular Hemoglobin Concent 34.3 g/dL (32.0-36.0) Red Cell Distribution Width 13.5 % (11.8-14.3) Platelet Count 272 10^3/uL (140-450) Mean Platelet Volume 9.2 fL (6.9-10.8) Neutrophils (%) (Auto) 50.6 % (37.0-80.0) Lymphocytes (%) (Auto) 30.5 % (10.0-50.0) Monocytes (%) (Auto) 13.8 % (0.0-12.0) Eosinophils (%) (Auto) 4.3 % (0.0-7.0) Basophils (%) (Auto) 0.8 % (0.0-2.0) Neutrophils # (Auto) 3.3 10 ^3/uL (1.6-8.6) Lymphocytes # (Auto) 2.0 10 ^3/uL (0.4-5.4) Monocytes # (Auto) 0.9 10 ^3/uL (0-1.3) Eosinophils # (Auto) 0.3 10 ^3/uL (0-0.8) Basophils # (Auto) 0.1 10 ^3/uL (0-0.2) Nucleated Red Blood Cells 0.2 % Other Laboratory Tests 05/23/25 07:32 05/22/25 17:15 Brief Hx & Hospital Course: HISTORY OF PRESENT ILLNESS: 49-year-old male presents for evaluation of chest pain. Patient reports developing left-sided pressure-like chest pain after having an argument with a co-worker. Currently he denies any complaints. He does report having a history of a leaky valve and is scheduled to see his manager action on the of this month. HOSPITAL COURSE: The patient was admitted at the line of chest pain, the patient was given nitroglycerin, morphine and aspirin and atorvastatin. EKG was performed, showed normal sinus rhythm with no significant ST or T-wave changes. Vitally the patient was stable. X-ray was performed, showed no intrathoracic abnormalities. Cardiology consulted, recommended outpatient follow up no ischemic workup at the moment. Echocardiogram of December 11, 2024 (performed in the office) revealed LVEF of 65-70%, borderline concentric left ventricular hypertrophy, mild mitral valve prolapse/MR/TR/PI and right ventricular systolic pressure of 31 mm Hg. During hospital course home medication including amlodipine, labetalol and albuterol was given to the patient. On 05/23/25 the patient was feeling better since admission. Discharge plan discussed with the patient and the patient discharged home. DISCHARGE PLAN: Follow up with the PCP within 1 week of the discharge. Follow up with the discharge Clinic within 1 week of the discharge. Follow up with the Cardiology on outpatient basis. 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 Follow up with the discharge Clinic within 1 week of the discharge. Follow up with the Cardiology on outpatient basis. Follow up with the Nephrology on outpatient basis Medications: Flomax 0.4 mg daily Hydroxyzine 25 mg PRN as needed for chest pain and anxiety Continue home meds Scheduled Omeprazole (Gnp Omeprazole), 1 TAB PO BID Tamsulosin Hcl (Flomax), 0.4 MG PO DAILY Scheduled PRN Hydroxyzine HCl (Hydroxyzine Hydrochloride), 25 MG PO BID PRN Discharge Statement: "Patient was advised to return to the ER or call 911 if any headaches, dizziness, shortness of breath, chest pain, abdominal pain, bleeding, fevers, or worsening of medical condition. Patient was counseled about treatment plan, medications, possible side effects, patientverbalized understanding. All questions were answered to the best of my ability. This discharge took greater then 30 minutes in planning, reviewing documentation, counseling the patient, and discussing with other team members." ASSESSMENT ASSESSMENT Assessment Chest pain, noncardiac Date of Service: May 23, 2025 Billing Provider: ASHLEY EDEN MD Common Visit Codes: 60671-FJG/OBS DISCH DAY >30min JOAO LAWRENCE RESIDENT May 23, 2025 18:55 ASHLEY EDEN MD May 26, 2025 20:49
--- NOTE | 2025-05-24 14:58 | ECG ---
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
== END 2025-05-23 14:00 | disposition home or self-care (01) | DRG 203 ==
LOC: ER 17:01 → EDUNIT# 17:01 → EDBD 17:01 → OVERFLOW 19:29
PROVIDERS: ADMIT Student in an Organized Health Care Education/Training Program; ATTEND Nurse Practitioner
DX: R07.89 Other chest pain (principal); N17.0 Acute kidney failure with tubular necrosis; I12.9 Hypertensive chronic kidney disease with stage 1 through stage 4 chronic kidney disease, or unspecified chronic kidney disease; N18.9 Chronic kidney disease, unspecified; I34.1 Nonrheumatic mitral (valve) prolapse; K21.9 Gastro-esophageal reflux disease without esophagitis; E78.5 Hyperlipidemia, unspecified; Z79.899 Other long term (current) drug therapy; Z83.3 Family history of diabetes mellitus; Z82.49 Family history of ischemic heart disease and other diseases of the circulatory system; Z87.442 Personal history of urinary calculi; F41.9 Anxiety disorder, unspecified
CPT/HCPCS: 36415; 71045; 80048; 80307; 81001; 83735; 84443; 84484; 85025; 85610; 93005; G0378

== ENCOUNTER 2025-10-15 19:53 | Emergency (ER) | payer MEDICAID ==
[~2025-10-15] VITALS: Ht 177.8 cm; Wt 87.8 kg
[~2025-10-15 19:53] MED LIST changes: +HYDR-4924 PO; +TAMS-35 PO
--- NOTE | 2025-10-15 20:53 | ED.PDOC ---
HPI Comments 50 year old male with PMHx of HTN, Kidney disease, and leaky valve on heart presents to the ED for chief complaint of chest pain onset this morning. Pt states they were driving home when they felt a sudden jolt of pain in chest, and another radiating across their head, contributing to associated sx of dizziness. Pt self-checked BP and found it elevated at 170/115 but is compliant with HTN meds. Chief Complaint: High Blood Pressure Time Seen by MD: 20:52 Primary Care Provider: YONG Linder Notes: Nurses Notes, Medications, Allergies Allergies: Coded Allergies: NO KNOWN ALLERGIES (Unverified , 07/30/24) Home Meds Active Scripts Amlodipine Besylate (Amlodipine Besylate) 5 Mg Tab, 1 TAB PO DAILY, #90 TAB 3 Refills Prov:TERESA COY MD 10/15/25 Hydroxyzine HCl (Hydroxyzine Hydrochloride) 25 Mg Tab, 25 MG PO BID PRN for 30 Days, #60 TAB 1 Refill Patient may take hydroxyzine as needed for anxiety and subjective chest discomfort. Prov:HUMAIRA WHEELER RESDIENT 05/23/25 Tamsulosin Hcl (Flomax) 0.4 Mg Cap, 0.4 MG PO DAILY for 30 Days, CAP 1 Refill Prov:HUMAIRA WHEELER RESDIENT 05/23/25 Omeprazole (Gnp Omeprazole) 20 Mg Tab, 1 TAB PO BID for 10 Days, #20 TAB 1 Refill Prov:ARAM DELUCA MD 07/30/24 Information Source: Patient Mode of Arrival: Ambulatory Severity: Moderate Timing: Hours Duration: Since onset Location: Chest (R) Quality: Pressure Past Medical History PAST MEDICAL HISTORY: CKF, High Lipids, HTN Surgical History: Denies all surgeries Family History Family History: Family hx of DM, Family hx of heart tatianna, Family hx of HTN Social History Smoker: Non-Smoker Alcohol: Occasionally Drugs: Denies Drug Use Lives In: Home Constitutional: denies: chills, diaphoresis, fatigue, fever, malaise, sweats, weakness, others EENTM: denies: blurred vision, double vision, ear bleeding, ear discharge, ear drainage, ear pain, ear ringing, eye pain, eye redness, hearing loss, mouth pain, mouth swelling, nasal discharge, nose bleeding, nose congestion, nose pain, photophobia, tearing, throat pain, throat swelling, voice changes, others Respiratory: denies: cough, hemoptysis, orthopnea, SOB at rest, shortness of breath, SOB with excertion, stridor, wheezing, others Cardiovascular: reports: chest pain, dizzy spells; denies: diaphoresis, Dyspnea on exertion, edema, irregular heart beat, left arm pain, lightheadedness, palpitations, PND, syncope, others Gastrointestinal: denies: abdomen distended, abdominal pain, blood streaked bow els, constipated, diarrhea, dysphagia, difficulty swallowing, hematemesis, melena, nausea, poor appetite, poor fluid intake, rectal bleeding, rectal pain, vomiting, others Genitourinary: denies: burning, dysuria, flank pain, frequency, hematuria, incontinence, penile discharge, penile sore, pain, testicle pain, testicle swelling, urgency, others Neurological: reports: dizziness, headache; denies: fainting, left sided numbn ess, left sided weakness, numbness, paresthesia, pre-existing deficit, right sided numbness, right sided weakness, seizure, speech problems, tingling, tremors, weakness, others Musculoskeletal: denies: back pain, gout, joint pain, joint swelling, muscle pain, muscle stiffness, neck pain, others Integumetry: denies: bruises, change in color, change in hair/nails, dryness, laceration, lesions, lumps, rash, wounds, others Allergic/Immunocompromised: denies: Difficulty Healing, Frequent Infections, Hives, Itching, others Hematologic/Lymphatic: denies: anemia, blood clots, easy bleeding, easy bruising, swollen glands, others Endocrine: denies: excessive hunger, excessive sweating, excessive thirst, excessive urination, flushing, intolerance to cold, intolerance to heat, unexplained weight gain, unexplained weight loss, others Psychiatric: denies: anxiety, bipolar disorder, depression, hopeless, panic disorder, schizophrenia, sleepless, suicidal, others All Other Systems: Reviewed and Negative Physical Exam General Appearance: No Apparent Distress, Normal HEENT: Normal ENT Inspection, Pharynx Normal, TMs Normal Neck: Full Range of Motion, Non-Tender, Normal, Normal Inspection Respiratory: Chest Non-Tender, Lungs Clear, No Accessory Muscle Use, No Respiratory Distress, Normal Breath Sounds Cardiovascular: No Edema, No JVD, No Murmur, No Gallop, Normal Peripheral Pulses, Regular Rate/Rhythm Breast Exam: Deferred Gastrointestinal: No Organomegaly, Non Tender, No Pulsatile Mass, Normal Bowel Sounds, Soft Genitalia: Deferred Pelvic: Deferred Rectal: Deferred Extremities: No calf tenderness, Normal capillary refill, Normal inspection, Normal range of motion, Non-tender, No pedal edema Musculoskeletal : Apperance: Normal Neurologic: Alert, 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 Was a procedure done?: No CP Differential Dx Differential Diagnosis: A-fib, A-Flutter, Angina, Hyperventilation, Hypoxia, AR, PAC's, Pacemaker Malfunction, Pulmonary Embolus, V-Fib, V-Tach, Other X-Ray, Labs, Meds, VS Vital Signs Date Time Temp Pulse Resp B/P (MAP) Pulse Ox O2 Delivery O2 Flow Rate FiO2 10/15/25 23:25 98 Room Air* 0 21 10/15/25 23:23 98.1 55 19 141/92 (108) 98 98.1 10/15/25 20:03 55 10/15/25 19:59 97.7 59 18 161/109 96 97.7 Lab Test 10/15/25 22:14 10/15/25 21:27 Range/Units Troponin I High Sensitivity 5 5 </=54 ng/L White Blood Count 7.3 4.4-10.8 10^3/uL Red Blood Count 4.81 4.5-5.90 10^6/uL Hemoglobin 14.7 13.5-17.5 g/dL Hematocrit 43.7 41.0-53.0 % Mean Corpuscular Volume 90.9 80.0-100.0 fL Mean Corpuscular Hemoglobin 30.6 28.0-32.0 pg Mean Corpuscular Hemoglobin Concent 33.6 32.0-36.0 g/dL Red Cell Distribution Width 13.6 11.8-14.3 % Platelet Count 246 140-450 10^3/uL Mean Platelet Volume 9.2 6.9-10.8 fL Neutrophils (%) (Auto) 52.8 37.0-80.0 % Lymphocytes (%) (Auto) 31.4 10.0-50.0 % Monocytes (%) (Auto) 9.4 0.0-12.0 % Eosinophils (%) (Auto) 5.4 0.0-7.0 % Basophils (%) (Auto) 1.0 0.0-2.0 % Neutrophils # (Auto) 3.8 1.6-8.6 10 ^3/uL Lymphocytes # (Auto) 2.3 0.4-5.4 10 ^3/uL Monocytes # (Auto) 0.7 0-1.3 10 ^3/uL Eosinophils # (Auto) 0.4 0-0.8 10 ^3/uL Basophils # (Auto) 0.1 0-0.2 10 ^3/uL Nucleated Red Blood Cells 0.1 % Sodium Level 138 136-145 mmol/L Potassium Level 4.3 3.5-5.1 mmol/L Chloride Level 103 98-107 mmol/L Carbon Dioxide Level 25 20-31 mmol/L Anion Gap 10 5-15 Blood Urea Nitrogen 15 9-23 mg/dL Creatinine 1.52 H 0.700-1.30 mg/dL Glomerular Filtration Rate Calc 55 >90 mL/min BUN/Creatinine Ratio 9.9 L 10.0-20.0 Serum Glucose 93 74-106 mg/dL Calcium Level 9.7 8.7-10.4 mg/dL Total Bilirubin 0.5 0.2-1.0 mg/dL Aspartate Amino Transferase (AST) 22 13-40 U/L Alanine Aminotransferase (ALT) 22 7-40 U/L Alkaline Phosphatase 107 46-116 U/L Total Protein 7.4 5.7-8.2 g/dL Albumin 4.5 3.2-4.8 g/dL Time of 1ST Reevaluation: 21:22 Reevaluation 1ST: Unchanged Patient Education/Counseling: Diagnosis, Treatment, Need For Follow Up Family Education/Counseling: No Family Present SEPSIS Sepsis Screen Date sepsis recognized/suspect: Oct 15, 2025 Time Sepsis recognized/suspect: 2000 Recent Procedure: No On Antibiotic Therapy: No Respiratory Rate >20: No Heart Rate >90: No Temp<36 C (96.8 F) or >38.3 C: No SBP <90 or MAP <65 mmHG: No New Acute Mental Status Change: No Is the patient on CPAP, BIPAP,: No Physician Orders Electrocardigram (10/15/25 20:06) Vital Signs Date Time Temp Pulse Resp B/P (MAP) Pulse Ox O2 Delivery O2 Flow Rate FiO2 10/15/25 23:25 98 Room Air* 0 21 10/15/25 23:23 98.1 55 19 141/92 (108) 98 98.1 10/15/25 20:03 55 10/15/25 19:59 97.7 59 18 161/109 96 97.7 Laboratory Tests Test 10/15/25 21:27 White Blood Count 7.3 10^3/uL (4.4-10.8) Departure 1 Departure Time of Disposition: 23:00 Impression: Primary Impression: Acute chest pain Disposition: HOME / SELF CARE / HOMELESS Condition: Stable e-Prescriptions Amlodipine Besylate (Amlodipine Besylate) 5 Mg Tab 1 TAB PO DAILY, #90 TAB 3 Refills Prov: TERESA COY MD 10/15/25 Discharged With: Self Critical Care Note Critical Care Time?: No Stability Stability form required: No Heart Score Heart Score: Heart Score Response (Comments) Value History N/A 0 EKG N/A 0 Age N/A 0 Risk Factors N/A 0 Troponin N/A 0 Total 0 I personally scribed for TERESA COY MD ([email or web address]) on 10/15/25 at 20:53. Electronically submitted by Maria Antonia Lopez ([email or web address]). TERESA COY MD Oct 15, 2025 20:53
[2025-10-15 21:46] LABS: Hematocrit 43.7 % (41.0-53.0); Hemoglobin 14.7 g/dL (13.5-17.5); Mean Corpuscular Hemoglobin 30.6 pg (28.0-32.0); Mean Corpuscular Volume 90.9 fL (80.0-100.0); Nucleated Red Blood Cells % 0.1 %
[2025-10-15 22:01] LABS: Alanine Aminotransferase 22 U/L (7-40); Alkaline Phosphatase 107 U/L (46-116); Anion Gap 10 (5-15); BUN/Creatinine Ratio 9.9 (10.0-20.0); Blood Urea Nitrogen 15 mg/dL (9-23); Calcium 9.7 mg/dL (8.7-10.4); Carbon Dioxide 25 mmol/L (20-31); Chloride 103 mmol/L (98-107); Glucose 93 mg/dL (74-106); Potassium 4.3 mmol/L (3.5-5.1); Sodium 138 mmol/L (136-145); Total Protein 7.4 g/dL (5.7-8.2)
[2025-10-15 22:02] LABS: Albumin 4.5 g/dL (3.2-4.8); Bilirubin, Total 0.5 mg/dL (0.2-1.0)
[2025-10-15] MEDS ORDERED: AMLO1TAB22 PO (23:10)
[2025-10-15 23:23] VITALS: BP 141/92; PULSE 55; RESP 19; TEMP 98.1
[2025-10-15 23:25] VITALS: O2SAT 98
--- NOTE | 2025-10-23 13:05 | ECG ---
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
== END 2025-10-16 00:03 | disposition home or self-care (01) ==
LOC: ER 19:53
DX: R07.89 Other chest pain (principal); I11.9 Hypertensive heart disease without heart failure; I50.9 Heart failure, unspecified; Z79.899 Other long term (current) drug therapy
CPT/HCPCS: 36415; 80053; 84484; 85025; 93005